=== PATIENT | female | born 1990 | race Caucasian/White ===

== ENCOUNTER 2016-09-29 11:12 | Emergency (ER) | payer SELFPAY ==
[2016-09-29 11:22] VITALS: TEMP 98.3; O2SAT 100
[2016-09-29] MEDS ORDERED: ACETAMINOPHEN-CAFF-BUTALBITAL 1 EA TAB PO ONE (11:26)
[2016-09-29] MEDS ORDERED: GABAPENTIN 300 MG CAP PO ONE ×2 (11:26→11:40)
--- NOTE | 2016-09-29 11:29 | ED.PDOC ---
History of Present Illness - General Chief Complaint: Dental/Mouth Stated Complaint: dental pain Time Seen by Provider: 09/29/16 11:21 Source: patient Exam Limitations: no limitations - History of Present Illness Initial Comments: The patient is a 26-year-old female presenting to the emergency room secondary to dental pain that is causing radiating symptoms up the side of her head and down the left side of her neck. this is been primarily present for the last 24 hours. The patient has extremely poor dentition with multiple dental caries and broken teeth. The tooth is seems to be causing her pain is the second molar on the left mandible. Although she has taken for this Tylenol. No syncope or near-syncope. No palpitations. Timing/Duration: 24 hours Severity: moderate Improving Factors: nothing Worsening Factors: eating Associated Symptoms: denies symptoms Allergies/Adverse Reactions: Allergies NO KNOWN ALLERGY Allergy (Verified 09/29/16 11:23) Home Medications: Ambulatory Orders Csmgdsfgamycj-Iznd-Aujuxxdbkx [Fioricet] 1 ea PO Q8H PRN #21 tab 09/29/16 Cephalexin Monohydrate [Keflex] 500 mg PO Q8H #30 cap 09/29/16 Gabapentin 100 mg PO TID PRN #30 cap 09/29/16 Review of Systems - Review of Systems Constitutional: States: no symptoms reported EENTM: States: see HPI Respiratory: States: no symptoms reported Cardiology: States: see HPI Gastrointestinal/Abdominal: States: no symptoms reported Genitourinary: States: no symptoms reported Musculoskeletal: States: see HPI Skin: States: no symptoms reported Neurological: States: see HPI Endocrine: States: no symptoms reported All other Systems: No Change from Baseline Past Medical History (General) - Patient Medical History Hx Seizures: No Hx Stroke: No Hx Dementia: No Hx Asthma: No Hx of COPD: No Hx Cardiac Disorders: No Hx Congestive Heart Failure: No Hx Pacemaker: No Hx Hypertension: No Hx Thyroid Disease: No Hx Diabetes: No Hx Gastroesophageal Reflux: No Hx Renal Disease: No Hx of HIV: No Hx MRSA: No Surgical History: other - Vaccination History Hx Tetanus, Diphtheria Vaccination: No Hx Influenza Vaccination: No Hx Pneumococcal Vaccination: No - Social History Hx Tobacco Use: Yes Hx Alcohol Use: No Hx Substance Use: Yes - weed Hx Substance Use Treatment: No Hx Depression: Yes - Activities of Daily Living Hospice Agency (if applicable):: None - Female History Patient is a Female of Child Bearing Age (10 -59 yrs old): No Patient : No Family Medical History - Family History Mother Family History: No Known Physical Exam - Physical Exam General Appearance: Alert, Anxious Eye Exam: bilateral other - the patient has a disconjugate gaze which is apparently not new Ears, Nose, Throat: hearing grossly normal, other - extremely poor dentition as above. Multiple dental caries and fractured teeth. Posterior oropharynx is clear. Palatal elevation is symmetrical. Tongue protrusion is symmetrical Neck: non-tender, full range of motion, supple Respiratory: chest non-tender, lungs clear, normal breath sounds, no respiratory distress, no accessory muscle use Cardiovascular/Chest: normal peripheral pulses, regular rate, rhythm, no edema Peripheral Pulses: radial,right: 2+, radial,left: 2+, dorsalis pedis,right: 2+, dorsalis pedis,left: 2+ Gastrointestinal/Abdominal: non tender, soft Rectal Exam: deferred Back Exam: normal inspection - he patient is very thin Extremity: normal range of motion, non-tender, normal inspection, no pedal edema , normal capillary refill Neurologic: alert, normal mood/affect, oriented x 3 Skin Exam: normal color Comments: Vital Signs - 24 hr 09/29/16 11:17 Temperature 98.3 F Pulse Rate [ 77 pulse ox] Respiratory 20 Rate Blood Pressure 119/65 [left arm] O2 Sat by Pulse 100 Oximetry Progress - Progress Progress: 09/29/16 11:31 the patient is a 26-year-old female presenting with dental pain that is causing radiating symptoms down the left side of her neck to her upper chest. She obviously needs to see a dentist. The patient will be placed on Keflex for possibility of a dental infection causing the increased pain. Additionally she'll be written for Fioricet for as needed use for pain control. She also needs to take one Aleve twice daily for the next week with food. She 'll be written for gabapentin 100 mg 3 times daily as needed for the radiating pain. Additionally she can put a drop of clove oil on the tooth in question. She can also use topical Ambisol or Chloraseptic to help reduce pain.eR warnings were given. Departure - Departure Clinical Impression: Pain due to dental caries Disposition: Discharge to Home or Self Care Condition: Fair Departure Forms: ED Discharge - Pt. Copy, Patient Portal Self Enrollment Instructions: DI for Tooth Decay Diet: regular diet Activity: increase activity as tolerated Referrals: Gavi Black NP [Primary Care Provider] - 1-2 Weeks Prescriptions: Shdybluxfrfyu-Ywex-Bwcuopismp [Fioricet] 1 ea PO Q8H PRN #21 tab PRN Reason: Pain Cephalexin Monohydrate [Keflex] 500 mg PO Q8H #30 cap Gabapentin 100 mg PO TID PRN #30 cap PRN Reason: Pain -- Moderate To Severe Home Medications: Ambulatory Orders Kaqjuyayectmc-Dxgo-Wwgxstkkzz [Fioricet] 1 ea PO Q8H PRN #21 tab 09/29/16 Cephalexin Monohydrate [Keflex] 500 mg PO Q8H #30 cap 09/29/16 Gabapentin 100 mg PO TID PRN #30 cap 09/29/16 Additional Instructions: the patient is a 26-year-old female presenting with dental pain that is causing radiating symptoms down the left side of her neck to her upper chest. She obviously needs to see a dentist. The patient will be placed on Keflex for possibility of a dental infection causing the increased pain. Additionally she'll be written for Fioricet for as needed use for pain control. She also needs to take one Aleve twice daily for the next week with food. She 'll be written for gabapentin 100 mg 3 times daily as needed for the radiating pain. Additionally she can put a drop of clove oil on the tooth in question. She can also use topical Ambisol or Chloraseptic to help reduce pain.eR warnings were given.
[2016-09-29] MEDS ORDERED: GABAPENTIN 100 MG CAP ONE (11:38)
[2016-09-29 11:50] VITALS: BP 114/73
== END 2016-09-29 11:50 | disposition home or self-care (01) ==
LOC: ER 11:12
DX: K02.9 Dental caries, unspecified (principal); Z87.891 Personal history of nicotine dependence; F32.9 Major depressive disorder, single episode, unspecified; F12.90 Cannabis use, unspecified, uncomplicated